=== PATIENT | male | born 1990 | race Two or more races ===

== ENCOUNTER 2023-11-09 09:17 | Emergency (ER) | payer SELFPAY ==
--- NOTE | ~2023-11-09 | XR_ITS ---
EXAMINATION: XR LEFT CALCANEUS XR RIGHT CALCANEUS CLINICAL INFORMATION: Bilateral heel pain. COMPARISON: None. TECHNIQUE: Axial and lateral views of each calcaneus were obtained. FINDINGS: No displaced fracture or malalignment. Joint spaces are preserved. No significant enthesopathy is demonstrated. XR/XR calcaneus RT min 2V IMPRESSION: No acute abnormality.
--- NOTE | ~2023-11-09 | XR_ITS ---
EXAMINATION: XR LEFT CALCANEUS XR RIGHT CALCANEUS CLINICAL INFORMATION: Bilateral heel pain. COMPARISON: None. TECHNIQUE: Axial and lateral views of each calcaneus were obtained. FINDINGS: No displaced fracture or malalignment. Joint spaces are preserved. No significant enthesopathy is demonstrated. XR/XR calcaneus LT min 2V IMPRESSION: No acute abnormality.
--- NOTE | ~2023-11-09 | US_ITS ---
EXAMINATION: US VENOUS ULTRASOUND WITH DOPPLER LOWER EXTREMITY, BILATERAL CLINICAL INFORMATION: Bilateral calf pain. COMPARISON: None available. TECHNIQUE: Ultrasound of the deep veins is performed from the hip to the calf with compression sonography and color and pulse Doppler assessment. Spectral analysis with color-flow imaging is performed. FINDINGS: RIGHT: There is normal venous compression and respiratory variation and augmented flow. The visualized common femoral vein, superficial femoral vein, profunda femoral vein, popliteal vein, and the trifurcation region shows no evidence of deep venous thrombosis. LEFT: There is normal venous compression and respiratory variation and augmented flow. The visualized common femoral vein, superficial femoral vein, profunda femoral vein, popliteal vein, and the trifurcation region shows no evidence of deep venous thrombosis. If the patient's symptoms persist, followup ultrasound in 5 days 7 days might be of value to exclude proximal propagation from a non-visualized calf vein. US/US venous duplex LE BI IMPRESSION: No DVT demonstrated in the bilateral lower extremities.
[2023-11-09 09:20] VITALS: BP 149/108; PULSE 85; RESP 18; TEMP 35.7; O2SAT 100; BMI 23.3
--- NOTE | 2023-11-09 10:25 | ED_ITS ---
HPI - Extremity Problem General Chief complaint: Extremity Problem Stated complaint: leg pain Time Seen by Provider: 11/09/23 09:39 Source: patient and RN notes reviewed Mode of arrival: ambulatory Limitations: no limitations History of Present Illness HPI Narrative: This is a 33-year-old male, with no known medical problems, presenting to the emergency department with complaints of bilateral foot and leg pain/numbness x2 days. Patient states that 2 days ago he was running through a parking lot and immediately felt pain in his right foot. He states that since then he has had increased pain, numbness and tingling starting from his bilateral feet and radiating upwards. He states that he has had some moderate swelling in his right leg as well. He denies any back pain, saddle anesthesia, urinary or bowel incontinence. He reports no similar symptoms in the past. He has been taking [id number] medications that any difficulty. No fevers, chills, chest pain, shortness on breath, abdominal pain, nausea, vomiting or diarrhea. No recent surgeries, hospitalizations, travel. He smokes cigarettes, no alcohol or drug use. No other complaints or concerns at this time. MD Complaint: extremity pain and extremity swelling Pain Consistency: constant Quality: aching Radiation: proximal Relieving factors: nothing Exacerbating factors: nothing Associated symptoms: denies other symptoms Related Data Previous Rx's Medication Instructions Recorded ibuprofen 600 mg tablet 600 mg PO Q6H PRN pain #30 tabs 11/09/23 Allergies Allergy/AdvReac Type Severity Reaction Status Date / Time No Known Allergies Allergy Verified 11/09/23 09:20 [No Known Allergies*] Review of Systems 2 Review of Systems: Yes all other systems are reviewed and are negative Constitutional: Constitutional: Reports as per [facility] Past Medical History Attestation statement: The following information was validated with the patient. Social History Social History Smoked in Last 30 Days: No Use of substances other than those prescribed or required for medical reasons: No Advance Directives: No Physical Exam 2 Vital Signs: Vital Signs: Last Vital Signs Temp 97.7 F 11/09/23 10:45 Pulse 60 11/09/23 10:45 Resp 16 11/09/23 10:45 BP 137/99 H 11/09/23 10:45 Pulse Ox 98 11/09/23 10:45 O2 Del Method Room Air 11/09/23 10:45 BMI result Body Mass Index 23.3 Const: General: cooperative, comfortable and no acute distress O rientation/consciousness: patient oriented x3 Limitations: no limitations HEENT: Head: Yes normal to inspection, Yes normocephalic and Yes atraumatic Ears: hearing grossly normal bilaterally General nose exam: Normal external nose present Face and sinus: Yes normal facial exam Mouth: Normal oral and palatal mucosa present, oropharynx normal and moist mucous membranes Throat: Yes posterior oropharynx normal Eyes: General: appearance normal, both eyes and all related structures E yelids: Yes eyelids normal Conjunctivae: conjunctivae normal Sclerae: s clerae normal Pupils: Equal, round and reactive pupils present EOM: EOMs intact bilaterally Neck: Neck: Yes normal visual inspection, Yes full ROM and Yes no lymphadenopathy Lymphatic: no lymphadenopathy noted Chest: Chest palpation & inspection: normal inspection of the chest Resp: Effort & Inspection: normal respiratory effort and able to speak in complete sentences Auscultation: clear to auscultation bilaterally, no crackles, no rales, no rhonchi and no wheezes Cardio: Rate: regular rate Rhythm: regular rhythm Heart sounds: S1 normal heart sound present and S2 normal heart sound present GI: Inspection: Yes normal to inspection : General: Yes no CVA tenderness Back/Spine/Pelvis: Other: Lumbar spine without any tenderness palpation, no paraspinous muscle tenderness. Back: no CVA tenderness Cervical Spine: normal cervical lordosis T horacic/Lumbar Spine: thoracic and lumbar spine normal to inspection Skin: General skin exam: no rashes or lesions noted Trauma: no lacerations or abrasions Wounds: no wounds Neuro: General: patient oriented x3 and moves all extremities Cranial nerves: Yes Equal, round and reactive pupils present Extrem: Other: Right foot with tenderness palpation along the bilateral plantar fascia, DP pulse 2 +. Full range of motion of the ankle. Moderate tenderness palpation along the right calf. No pitting edema noted. Extremities are well perfused, no overlying erythema, edema, or duskiness. No tenderness palpation along the anterior tibia General: Yes normal to inspection Right upper extremity: normal to inspection Left upper extremity: normal to inspection Right lower extremity: normal to inspection Left lower extremity: normal to inspection Course Reevaluation(s) Reevaluation #1: Labs returned, patient has slight normocytic anemia, similar to previous. Chemistry within normal limits. Ultrasound does not reveal any DVT. Calcaneal x-rays unremarkable. Symptoms likely due to plantar fasciitis given pain radiates proximally from his feet upwards with tenderness palpation along the plantar fascia. Discussed workup with patient, advised to return with any new or worsening symptoms. He understands and agrees with plan. Patient stable for discharge. Time: 12:19 Medical Decision Making Medical Decision Making [facility] Narrative: This is a 33-year-old male presenting to the emergency department with complaints of bilateral leg pain with tingling to his bilateral feet. On arrival, vital signs within normal limits. He is nontoxic-appearing. Patient has tenderness palpation along the bilateral plantar fascia, differential diagnosis see including plantar fasciitis, electrolyte disturbance, rhabdomyolysis, sciatica, DVT, cauda equina-unlikely given no back pain, or saddle anesthesia. Given clinical picture, will obtain basic labs to rule out any electrolyte derangement. Will also obtain CPK to ensure no rhabdo, bilateral calcaneus x-rays ordered as well as bilateral ultrasounds will be obtained. Differential Diagnosis Differential Diagnoses: The differential diagnosis associated with the presentation includes See above Admission/Observation Consideration of admission/observation: Escalation of care including admission/observation considered Lab Data [facility] Lab Attestation statement: I reviewed the patient's lab results. 11/09/23 10:20 11/09/23 10:20 Labs: Lab Results 11/09/23 Range/Units 10:20 WBC 6.5 (4.8-10.8) X10*3/uL RBC 4.25 L (4.60-5.80) X10*6/uL Hgb 12.9 L (14.0-18.0) g/dl Hct 37.9 L (42.0-52.0) % MCV 89.2 (80.0-98.0) fL MCH 30.4 (27.0-33.0) pg MCHC 34.0 (31.0-36.0) g/dl RDW 13.0 (11.0-16.0) % Plt Count 203 (160-400) X10*3/uL MPV 9.9 (9.4-12.4) fL Immature Gran % (Auto) 0.8 H (0.0-0.4) % Neut % (Auto) 68.6 (45-73) % Lymph % (Auto) 16.1 L (20-40) % [place] % (Auto) 10.6 (2-11) % Eos % (Auto) 3.4 (0-4) % Baso % (Auto) 0.5 (0-2) % Lymph # (Auto) 1.1 L (1.2-4.9) X10*3/uL [place] # (Auto) 0.7 (0.1-1.2) X10*3/uL Eos # (Auto) 0.2 (0.0-0.4) X10*3/uL Baso # (Auto) 0.0 (0.0-0.2) X10*3/uL Abs Immat Gran (auto) 0.05 H (0.00-0.03) X10*3/uL Absolute Neuts (auto) 4.5 (2.0-8.3) x10*3/uL Absolute Nucleated RBC 0.000 (0.0-0.012) X10*3/uL Nucleated RBC % (auto) 0.0 (0.0-0.2) /100WBC Sodium 137 (135-145) mmol/L Potassium 4.3 (3.3-5.1) mmol/L Chloride 105 (96-108) mmol/L Carbon Dioxide 29 (22-29) mmol/L Anion Gap 7 L (12-20) BUN 9 (9-16) mg/dL Creatinine 0.79 (0.5-1.4) mg/dL Estim Creat Clear Calc 154.6 Estimated GFR > 60 Random Glucose 93 (60-115) mg/dL Calcium 9.3 (8.4-10.2) mg/dL Magnesium 1.7 (1.6-2.6) mg/dL Total Bilirubin 0.4 (0.0-1.0) mg/dL Direct Bilirubin 0.2 (0.0-0.5) mg/dL AST 28 (5-37) U/L ALT 40 (0-40) U/L Alkaline Phosphatase 57 (39-117) U/L Total Creatine Kinase 82 (38-174) U/L Total Protein 6.9 (6.5-8.0) g/dL Albumin 4.0 (3.5-5.0) g/dL Radiology Impression Discussion of test interpretation with radiology: I have reviewed the radiologist's reading. External Record Review External record reviewed: Inpatient record, Office record, Outpatient record, Prior outpatient labs, Prior outpatient radiology, Primary care record and Outside ED record Discharge Plan Discharge Clinical Impression: Bilateral plantar fasciitis, Muscle strain Patient Disposition: Home, Self-Care Instructions: Muscle Strain (ED), Plantar Fasciitis (ED), Musculoskeletal Pain (ED), Plantar Fasciitis Exercises (ED) Additional Instructions: You were seen in the emergency department due to leg and foot pain/numbness. Your lab work today was reassuring. Your ultrasound did not show any blood clots. Your x-rays were normal. Gentle stretching, massage, heat or ice can help with your symptoms. Please see attached forms for further treatment. You likely have something called plantar fasciitis which is inflammation of the bottoms of your feet, this can cause radiating pain appear legs. He also likely pulled some muscles while running several days ago. Please use [id number] NSAIDs, such as ibuprofen or naproxen. I sent over a prescription of ibuprofen, which he can take every 6 hours as needed for pain and symptoms. Follow-up with your primary care physician. If any new or worsening symptoms occur including but not limited to worsening pain, worsening numbness and tingling, back pain, fevers, chills, chest pain, shortness of breath, numbness and tingling into your groin, urinary or bowel retention or incontinence, please return for re-evaluation. Prescriptions: New ibuprofen 600 mg tablet 600 mg PO Q6H PRN (Reason: pain) Qty: 30 0RF
[2023-11-09 10:26] LABS: Basophils Percent Auto 0.5 % (0-2); Eosinophils Absolute Auto 0.2 X10*3/uL (0.0-0.4); Eosinophils Percent Auto 3.4 % (0-4); Hematocrit 37.9 % (42.0-52.0); Hemoglobin 12.9 g/dl (14.0-18.0); Imm Gran Abs Auto 0.05 X10*3/uL (0.00-0.03); Imm Gran Pct Auto 0.8 % (0.0-0.4); Lymphocytes Absolute Auto 1.1 X10*3/uL (1.2-4.9); Lymphocytes Percent Auto 16.1 % (20-40); MANUAL DIFF FLAG NO; Mean Corpuscular Hemoglobin 30.4 pg (27.0-33.0); Mean Corpuscular Volume 89.2 fL (80.0-98.0); Mean Platelet Volume 9.9 fL (9.4-12.4); Monocytes Absolute Auto 0.7 X10*3/uL (0.1-1.2); Monocytes Percent Auto 10.6 % (2-11); Neutrophils Absolute Auto 4.5 x10*3/uL (2.0-8.3); Neutrophils Percent Auto 68.6 % (45-73); Platelet Count 203 X10*3/uL (160-400); Red Blood Count 4.25 X10*6/uL (4.60-5.80); White Blood Count 6.5 X10*3/uL (4.8-10.8)
[2023-11-09 10:45] VITALS: BP 137/99; PULSE 60; RESP 16; TEMP 36.5; O2SAT 98
[2023-11-09 10:46] LABS: Alanine Aminotransferase 40 U/L (0-40); Alkaline Phosphatase 57 U/L (39-117); Anion Gap 7 (12-20); Aspartate Amino Transferase 28 U/L (5-37); Bilirubin Direct 0.2 mg/dL (0.0-0.5); Bilirubin Total 0.4 mg/dL (0.0-1.0); Blood Urea Nitrogen 9 mg/dL (9-16); Calcium 9.3 mg/dL (8.4-10.2); Carbon Dioxide 29 mmol/L (22-29); Chloride 105 mmol/L (96-108); Creatinine Clr Calc Pharmacy 154.6; Estimated Glomerular Filt Rate > 60; Glucose Random 93 mg/dL (60-115); Magnesium 1.7 mg/dL (1.6-2.6); Potassium 4.3 mmol/L (3.3-5.1); Sodium 137 mmol/L (135-145); Total Protein 6.9 g/dL (6.5-8.0)
== END 2023-11-09 12:32 | disposition home or self-care (01) ==
PROVIDERS: Physician Assistant Medical; Emergency Provider Emergency Medicine
DX: S96.912A Strain of unspecified muscle and tendon at ankle and foot level, left foot, initial encounter (principal); S96.911A Strain of unspecified muscle and tendon at ankle and foot level, right foot, initial encounter; M72.2 Plantar fascial fibromatosis; R60.0 Localized edema; X58.XXXA Exposure to other specified factors, initial encounter; Y93.9 Activity, unspecified; Y92.9 Unspecified place or not applicable; Y99.8 Other external cause status; Z79.899 Other long term (current) drug therapy
CPT/HCPCS: 36415; 73650; 80048; 80076; 82550; 83735; 85025; 93970; 99284